=== PATIENT | male | born 1940 | race Caucasian/White ===

== ENCOUNTER → 2018-01-08 | Outpatient (CLI) | payer MEDICARE ==
[2015-08-30 08:20] VITALS: BMI 31.3
[~2018-01-08] MED LIST: ACE500 PO; BENA1TAB PO; CEFA-83 PO; CELE-1 PO; CHOL10005 PO; CLOB15CR22 TP; DOC100 PO; LISI-362 PO; MELO-207 PO; NABU-183; NABU-95 PO; PER PO; RIVA15TA PO; RIVA20TA PO; SPIR1TAB28 PO; SPIRONO/HCTZ; TRA50 PO; TRI05T TP
--- NOTE | 2018-01-08 13:37 | RADIOLOGY IMAGING REPORT ---
FACILITY: [facility] - [place] PATIENT NAME: Angel Nunes : 1940 MR: [id number] V: [id number] EXAM DATE: ORDERING PHYSICIAN: NARINDER SYKES TECHNOLOGIST: Location: [facility] [place] Patient: Angel Nunes : 1940 Visit/Account:[id number] Date of Sevice: 01/08/2018 ORBITS FOREIGN BODY 1 VIEW INDICATION: Pre-MRI. History of welding/grinding. COMPARISON: None available FINDINGS: AP view the orbits. No radiopaque foreign body besides dental work. Sinuses and mastoids visualized are clear. No gross bony abnormality. IMPRESSION: No orbital radiopaque foreign body. Report Dictated By: Arnold Hubbard at 01/08/2018 1:31 PM Report E-Signed By: Arnold Hubbard at 01/08/2018 1:32 PM WSN:[id number]
--- NOTE | 2018-01-08 23:42 | RADIOLOGY IMAGING REPORT ---
FACILITY: [facility] PATIENT NAME: Angel Nunes : 1940 MR: [id number] V: [id number] EXAM DATE: ORDERING PHYSICIAN: NARINDER SYKES TECHNOLOGIST: [place] [facility] [place]: Angel Nunes : 1940 Visit/Account:[id number] Date of Sevice: 01/08/2018 EXAMINATION: MRI Cervical spine without intravenous contrast HISTORY: Weakness. COMPARISON: None. TECHNIQUE: Multi-planar, multi-sequence cervical spine MRI was performed without intravenous contras t administration. FINDINGS: Alignment: 2 to 3 mm of retrolisthesis of C3 over C4. 2 mm of retrolisthesis of C5 over C6. 1 to 2 mm of anterior listhesis of C7 over T1 and T1 over T2. Vertebral marrow signal: Degenerative endplate changes at a few levels. Otherwise negative. Cranio-cervical junction: Mild degenerative changes with normal alignment. Visualized posterior fossa: Negative. Soft tissues: Negative. Cervical cord: Mild T2 hyperintensity in the spinal cord at C3-C4. Disc Spaces: C1-2: No significant stenosis. C2-3: Small broad-based disc osteophyte complex with mild uncovertebral and facet hypertrophy. No sig nificant stenosis. C3-4: Moderate to severe disc height loss. 2 to 3 mm of retrolisthesis. Circumferential disc osteophy te complex with facet hypertrophy and ligamentum flavum thickening. Moderate spinal canal stenosis. M ild flattening of the spinal cord with mild T2 hyperintensity in the spinal cord. Severe bilateral ne ural foraminal stenosis. C4-5: Mild disc height loss with broad-based disc osteophyte complex and right greater than left unco vertebral and facet hypertrophy. No significant spinal canal stenosis. Severe right and moderately se angela left neural foraminal stenosis. C5-6: 2 mm of retrolisthesis. Moderate disc height loss with circumferential disc osteophyte complex, facet hypertrophy, and ligamentum flavum thickening. Mild spinal canal stenosis. Severe right and mo derately severe left neural foraminal stenosis. C6-7: Moderate disc height loss with circumferential disc osteophyte complex, facet hypertrophy, and ligamentum flavum thickening. Mild spinal canal stenosis. Moderate bilateral neural foraminal stenosi s. C7-T1: 1 to 2 mm of anterior listhesis. Mild disc height loss with broad-based disc osteophyte comple x and left greater than right uncovertebral and facet hypertrophy. No significant spinal canal stenos is. Mild right and moderate left neural foraminal stenosis. Upper thoracic spine: Degenerative changes with mild to moderate neural foraminal stenosis, most irma re on the right at T1-T2. IMPRESSION: 1. Multilevel degenerative disc disease and facet hypertrophy with multiple alignment abnormalities. 2. Moderate spinal canal stenosis at C3-C4 with and mild flattening of the spinal cord and mild T2 hy perintense spinal cord signal which may represent edema and/or myelomalacia. 3. Multilevel neural foraminal stenosis. 4. Please see above report for level by level description. Report Dictated By: Micheal Ricketts MD at 01/08/2018 11:30 PM Report E-Signed By: Micheal Ricketts MD at 01/08/2018 11:38 PM WSN:[id number]
== END ==
LOC: MRI 00:44
PROVIDERS: ATTEND Neurological Surgery
DX: M47.894 Other spondylosis, thoracic region (principal); M48.02 Spinal stenosis, cervical region; M48.03 Spinal stenosis, cervicothoracic region
CPT/HCPCS: 70030; 72141

== ENCOUNTER → 2019-06-14 | Outpatient (CLI) | payer MEDICARE ==
[2015-08-30 08:20] VITALS: BMI 31.3
--- NOTE | 2019-06-14 17:36 | RADIOLOGY IMAGING REPORT ---
FACILITY: [facility] - [place] PATIENT NAME: Angel Nunes : 1940 MR: [id number] V: [id number] EXAM DATE: ORDERING PHYSICIAN: ANAMARIA WOODARD TECHNOLOGIST: [place] [facility] [place] N[place] : 1940 Visit/Account:[id number] Date of Sevice: 06/14/2019 EXAMINATION: CT Lumbar spine without intravenous contrast HISTORY: Spinal stenosis. COMPARISON: None available. TECHNIQUE: Noncontrast axial CT of the lumbar spine with sagittal and coronal reformats. One of the following dose optimization techniques was utilized in the performance of this exam: Autom ated exposure control; adjustment of the mA and/or kV according to the patient's size; or use of an i terative reconstruction technique. Specific details can be referenced in the facility's radiology C T exam operational policy. FINDINGS: Diffuse osteopenia. Alignment: Mild reversal of the normal lordosis. Mild to moderate convex rightward curvature. 1 cm le ft lateral listhesis of L1 over L2 and right lateral listhesis of L4 over L5. 8 mm of retrolisthesis of L4 over L5. 5 mm of anterior listhesis of L5 over S1. Vertebral bodies: Degenerative endplate changes at multiple levels. Normal vertebral body height. Posterior elements: Multilevel facet hypertrophy. Bilateral solid fusion from L2 through L5 and possi magen also at L1-L2. Laminectomy at multiple levels. Hardware: None. Disc Spaces: Multilevel degenerative disc disease. Solid interbody fusion from L1 through L4 and poss ibly at L4-L5. Soft tissues: Negative. Visualized retroperitoneal / abdominal structures: Large hiatal hernia containing the majority of the stomach. Mild aortoiliac calcification without aneurysm. Partially imaged bilateral hip arthroplasty. IMPRESSION: 1. Diffuse osteopenia with no definite acute abnormality. 2. Multilevel degenerative disc disease and facet hypertrophy with multiple alignment abnormalities a nd postsurgical changes. 3. Large hiatal hernia containing the majority of the stomach. Report Dictated By: Micheal Ricketts MD at 06/14/2019 5:22 PM Report E-Signed By: Micheal Ricketts MD at 06/14/2019 5:29 PM WSN:[email or web address]
== END ==
LOC: CT 01:04
PROVIDERS: ATTEND Orthopaedic Surgery Orthopaedic Surgery of the Spine
DX: M85.89 Other specified disorders of bone density and structure, multiple sites (principal); K44.9 Diaphragmatic hernia without obstruction or gangrene; M51.9 Unspecified thoracic, thoracolumbar and lumbosacral intervertebral disc disorder
CPT/HCPCS: 72131